=== PATIENT | female | born 1980 | race Caucasian/White ===

== ENCOUNTER 2019-02-16 13:53 | Inpatient (IN) | payer MEDICAID ==
[~2019-02-16] VITALS: Ht 162.6 cm; Wt 57.0 kg
--- NOTE | 2019-02-16 14:27 | NUR ---
Blood drawn and patient to CT.
[2019-02-16 14:40] LABS: BASOPHILS # (AUTO) 0.1 X10'3 (0-0.2); BASOPHILS % (AUTO) 1.4 % (0-1); EOSINOPHILS # (AUTO) 0.3 X10'3 (0-0.9); EOSINOPHILS % (AUTO) 3.9 % (0-6); HEMATOCRIT 32.5 % (35.0-45.0); LYMPHOCYTES # (AUTO) 1.9 X10'3 (1.1-4.8); MEAN CORPUSCULAR HEMOGLOBIN 24.5 PG (27.0-31.0); MEAN CORPUSCULAR HGB CONC 33.8 g/dL (33.0-36.5); MEAN CORPUSCULAR VOLUME 72.3 FL (78-98); MEAN PLATELET VOLUME 8.7 FL (7.4-10.4); MONOCYTES # (AUTO) 0.5 X10'3 (0-0.9); MONOCYTES % (AUTO) 7.6 % (2-12); NEUTROPHILS # (AUTO) 4.2 X10'3 (1.8-7.7); NEUTROPHILS % (AUTO) 60.1 % (42-75); PLATELET COUNT 129 X10'3 (140-440); RED CELL DISTRIBUTION WIDTH 15.3 % (11.5-14.5); WHITE BLOOD COUNT 6.9 X10'3 (4.5-11.0)
[2019-02-16] MEDS ORDERED: aspirin 325mg tablet PO ONE (14:45)
[2019-02-16 14:46] LABS: PARTIAL THROMBOPLASTIN TIME 56 SECONDS (22-32)
[2019-02-16 14:47] LABS: ALANINE AMINOTRANSFERASE 21 U/L (12-78); ALBUMIN 3.6 G/DL (3.4-5.0); ALBUMIN/GLOBULIN RATIO 0.8 (1.1-1.5); ALKALINE PHOSPHATASE 108 IU/L (46-116); ANION GAP 8 (8-16); ASPARTATE AMINO TRANSFERASE 21 U/L (10-37); BILIRUBIN,TOTAL 0.3 MG/DL (0.1-1.0); BLOOD UREA NITROGEN 16 MG/DL (7-18); BUN/CREATININE RATIO 12.6 (6.6-38.0); CHLORIDE 103 MMOL/L (99-107); CREATININE 1.27 MG/DL (0.40-0.90); GLUCOSE 92 MG/DL (70-104); SODIUM 139 MMOL/L (135-145); TOTAL CARBON DIOXIDE 28.3 MMOL/L (24-32); TOTAL PROTEIN 7.9 G/DL (6.4-8.2); eGFR 47 ML/MIN
[2019-02-16 14:51] LABS: TROPONIN I < 0.04 NG/ML (0.0-0.05)
[2019-02-16] MEDS ORDERED: clopidogrel 300mg tablet PO ONE (15:30)
[2019-02-16] MEDS ORDERED: iohexol 350MG/ML 100ml bottle IV ONE (15:32)
[2019-02-16] MEDS ORDERED: ASPI-1264 PO (15:39)
[2019-02-16] MEDS ORDERED: magnesium Cl slow-release 64mg tablet PO PRN (16:40)
[2019-02-16] MEDS ORDERED: magnesium 4gm in 100ml NS 100 ML IV PRN (16:40)
[2019-02-16] MEDS ORDERED: magnesium hydroxide 30ml (MOM) UD suspension PO PRN (16:40)
[2019-02-16] MEDS ORDERED: diphenhydrAMINE 25mg capsule PO PRN (16:40)
[2019-02-16] MEDS ORDERED: metoclopramide 5 mg/ml inj IV PRN (16:40)
[2019-02-16] MEDS ORDERED: magnesium 2GM in 50ml NS 50 ML IV PRN (16:40)
[2019-02-16] MEDS ORDERED: mag hydrox/Alum hydrox/simeth 30ml oral suspension PO PRN (16:40)
[2019-02-16] MEDS ORDERED: acetaminophen 650mg rectal suppository RC PRN (16:40)
[2019-02-16] MEDS ORDERED: acetaminophen 325mg tablet PO PRN ×2 (16:40)
[2019-02-16] MEDS ORDERED: potassium Cl 20 mEq SR tablet PO PRN (16:40)
[2019-02-16] MEDS ORDERED: ondansetron/PF 4mg/2ml inj IV PRN (16:40)
[2019-02-16] MEDS ORDERED: potassium CL 10mEq/100ml bag 100 ML IV PRN ×2 (16:40)
[2019-02-16] MEDS ORDERED: bisacodyl 10mg suppository rectal RC PRN (16:40)
[2019-02-16 17:15] LABS: CHOL/HDL RATIO 2.2 (0.00-4.99); CHOLESTEROL 137 MG/DL (0-200); HDL CHOLESTEROL 62 MG/DL (35-60); LDL CHOLESTEROL 69 MG/DL (50-100); TRIGLYCERIDES 41 MG/DL (20-135)
[2019-02-16] MEDS: atorvastatin 20mg tablet PO SCH (18:01)
[2019-02-16] MEDS: normal saline 1000ml 1,000 ML IV SCH (18:03)
[2019-02-16 18:08] LABS: URINE HCG NEGATIVE (NEG)
[2019-02-16 18:12] LABS: CLARITY,URINE CLEAR (Clear); COLOR,URINE YELLOW (Yellow); GLUCOSE, URINE NEGATIVE (Neg); KETONES,URINE NEGATIVE (Neg); LEUKOCYTE ESTERASE ,URINE NEGATIVE (Neg); NITRITES, URINE NEGATIVE (Neg); OCCULT BLOOD,URINE NEGATIVE (Neg); PROTEIN,URINE NEGATIVE (Neg); UROBILINOGEN,URINE 0.2 E.U/dL (0.2-1.0)
[2019-02-16 18:14] LABS: UA COLLECTION TYPE CLN CATCH MIDSTREAM
[2019-02-16 18:21] LABS: URINE AMPHETAMINE SCREEN POSITIVE (Neg); URINE BARBITUATE SCREEN NEGATIVE (Neg); URINE BENZODIAZEPINES SCREEN NEGATIVE (Neg); URINE CANNABINOID SCREEN NEGATIVE (Neg); URINE COCAINE SCREEN NEGATIVE (Neg); URINE METHADONE SCREEN NEGATIVE (Neg); URINE OPIATE SCREEN NEGATIVE (Neg); URINE PHENCYCLIDINE SCREEN NEGATIVE (Neg)
--- NOTE | 2019-02-16 19:22 | NUR ---
Report rec'd from Pradeep FOSTER rn.
--- NOTE | 2019-02-16 19:34 | NUR ---
pt up to the floor, VSS, ambulatory to the restroom from hallway.
[2019-02-16] MEDS: K and/or MAG REPLACEMENT MC SCH (20:00)
[2019-02-16 20:14] VITALS: BP 171/105
[2019-02-16] MEDS ORDERED: propranolol LA 60 MG cap.SA.24H PO ONE (20:45)
[2019-02-16] MEDS ORDERED: propranolol LA 60 MG cap.SA.24H PO SCH (20:45)
[2019-02-16] MEDS ORDERED: propranolol 10mg tablet PO ONE (21:00)
--- NOTE | 2019-02-16 21:45 | NUR ---
Dr Cerda in to see pt. pt still denies use of amphetamine, (+) toxicology. new order for propranolol 20mg PO bid, and once now. Addendum: 02/17/19 at 0102 by Luz Sapp RN Dr Cerda in to see pt. pt still denies use of amphetamine, (+) toxicology. new order for propranolol 20mg PO bid, and once now. also, decrease NS to 20ml/hr.
[2019-02-16] MEDS: heparin, porcine 5000 units/ml vial SQ SCH (21:52)
[2019-02-16 22:00] VITALS: BP 160/89
[2019-02-17 01:17] VITALS: BP 156/92
[2019-02-17 05:25] LABS: BASOPHILS % (AUTO) 0.8 % (0-1); EOSINOPHILS # (AUTO) 0.3 X10'3 (0-0.9); EOSINOPHILS % (AUTO) 5.2 % (0-6); HEMATOCRIT 28.3 % (35.0-45.0); HEMOGLOBIN 9.5 g/dl (12.0-16.0); LYMPHOCYTES % (AUTO) 35.4 % (21-51); MEAN CORPUSCULAR HGB CONC 33.5 g/dL (33.0-36.5); MEAN CORPUSCULAR VOLUME 74.7 FL (78-98); MEAN PLATELET VOLUME 8.7 FL (7.4-10.4); MONOCYTES # (AUTO) 0.5 X10'3 (0-0.9); MONOCYTES % (AUTO) 8.4 % (2-12); NEUTROPHILS # (AUTO) 2.9 X10'3 (1.8-7.7); NEUTROPHILS % (AUTO) 50.2 % (42-75); PLATELET COUNT 112 X10'3 (140-440); RED BLOOD COUNT 3.78 X10'6 (4.20-5.60); RED CELL DISTRIBUTION WIDTH 15.3 % (11.5-14.5); WHITE BLOOD COUNT 5.7 X10'3 (4.5-11.0)
[2019-02-17 05:41] LABS: ALANINE AMINOTRANSFERASE 18 U/L (12-78); ALBUMIN 3.1 G/DL (3.4-5.0); ALBUMIN/GLOBULIN RATIO 0.9 (1.1-1.5); ALKALINE PHOSPHATASE 91 IU/L (46-116); ANION GAP 5 (8-16); ASPARTATE AMINO TRANSFERASE 19 U/L (10-37); BILIRUBIN,TOTAL 0.3 MG/DL (0.1-1.0); BLOOD UREA NITROGEN 12 MG/DL (7-18); BUN/CREATININE RATIO 10.8 (6.6-38.0); CALCIUM 8.4 MG/DL (8.5-10.1); CHLORIDE 107 MMOL/L (99-107); CHOL/HDL RATIO 2.3 (0.00-4.99); CHOLESTEROL 115 MG/DL (0-200); CREATININE 1.11 MG/DL (0.40-0.90); GLUCOSE 87 MG/DL (70-104); HDL CHOLESTEROL 49 MG/DL (35-60); LDL CHOLESTEROL 57 MG/DL (50-100); MAGNESIUM 1.7 MG/DL (1.5-2.4); POTASSIUM 3.4 MMOL/L (3.5-5.1); SODIUM 139 MMOL/L (135-145); TOTAL CARBON DIOXIDE 26.7 MMOL/L (24-32); TOTAL PROTEIN 6.6 G/DL (6.4-8.2); TRIGLYCERIDES 77 MG/DL (20-135); eGFR 55 ML/MIN
[2019-02-17 06:30] VITALS: BP 149/78
--- NOTE | 2019-02-17 06:41 | NUR ---
Report given to zachery Davis.
--- NOTE | 2019-02-17 06:47 | NUR ---
Patient in room ORTHO 4006. I have received report from BYRON Yang and had the opportunity to ask questions and assume patient care.
[2019-02-17] MEDS: K and/or MAG REPLACEMENT MC SCH ×2 (07:01→19:04)
[2019-02-17] MEDS ORDERED: propranolol LA 60 MG cap.SA.24H PO SCH (08:00)
[2019-02-17] MEDS: propranolol 10mg tablet PO SCH ×2 (09:12→20:16)
[2019-02-17] MEDS: atorvastatin 20mg tablet PO SCH (09:12)
[2019-02-17] MEDS: aspirin 81mg tablet.DR PO SCH (09:13)
[2019-02-17] MEDS: potassium Cl 20 mEq SR tablet PO PRN ×3 (09:13→20:16)
[2019-02-17] MEDS: heparin, porcine 5000 units/ml vial SQ SCH ×2 (09:13→20:16)
[2019-02-17] MEDS ORDERED: LORazepam 2 mg/ml vial IV ONE (10:10)
[2019-02-17 11:00] VITALS: BP 135/82
[2019-02-17 15:00] VITALS: BP 141/82
[2019-02-17 18:00] VITALS: BP 129/89
[2019-02-17] MEDS ORDERED: atorvastatin 20mg tablet PO ONE (19:10)
--- NOTE | 2019-02-17 19:26 | NUR ---
Chelsy from [facility] called to notify staff that they will SET UP ROUTINE TELE-PSYCH APPT IN THE AM BETWEEN 8-, AND WILL CALL 30 MINS PRIOR TO APPT. Addendum: 02/17/19 at 1947 by Luz Sapp RN Chelsy from [facility] called to notify staff that they will SET UP ROUTINE TELE-NEURO APPT IN THE AM BETWEEN 8-, AND WILL CALL 30 MINS PRIOR TO APPT.
[2019-02-17] MEDS: clopidogrel 75mg tablet PO SCH (21:40)
[2019-02-17 22:00] VITALS: BP 139/88
[2019-02-17] MEDS: normal saline 1000ml 1,000 ML IV SCH (22:23)
[2019-02-18 05:57] LABS: BASOPHILS # (AUTO) 0.1 X10'3 (0-0.2); BASOPHILS % (AUTO) 0.9 % (0-1); EOSINOPHILS # (AUTO) 0.3 X10'3 (0-0.9); HEMATOCRIT 29.6 % (35.0-45.0); HEMOGLOBIN 9.9 g/dl (12.0-16.0); LYMPHOCYTES # (AUTO) 1.9 X10'3 (1.1-4.8); LYMPHOCYTES % (AUTO) 29.1 % (21-51); MEAN CORPUSCULAR HEMOGLOBIN 24.3 PG (27.0-31.0); MEAN CORPUSCULAR HGB CONC 33.4 g/dL (33.0-36.5); MEAN CORPUSCULAR VOLUME 72.8 FL (78-98); MEAN PLATELET VOLUME 9.2 FL (7.4-10.4); MONOCYTES # (AUTO) 0.5 X10'3 (0-0.9); NEUTROPHILS # (AUTO) 3.8 X10'3 (1.8-7.7); PLATELET COUNT 120 X10'3 (140-440); RED BLOOD COUNT 4.06 X10'6 (4.20-5.60); RED CELL DISTRIBUTION WIDTH 15.4 % (11.5-14.5); WHITE BLOOD COUNT 6.4 X10'3 (4.5-11.0)
--- NOTE | 2019-02-18 06:22 | NUR ---
REPORT GIVEN TO BYRON STARK.
--- NOTE | 2019-02-18 06:30 | NUR ---
Patient in room ORTHO 4006. I have received report from BYRON Escobar and had the opportunity to ask questions and assume patient care.
[2019-02-18 06:34] LABS: ALANINE AMINOTRANSFERASE 17 U/L (12-78); ALBUMIN/GLOBULIN RATIO 0.8 (1.1-1.5); ALKALINE PHOSPHATASE 86 IU/L (46-116); ANION GAP 8 (8-16); ASPARTATE AMINO TRANSFERASE 15 U/L (10-37); BILIRUBIN,TOTAL 0.3 MG/DL (0.1-1.0); BLOOD UREA NITROGEN 13 MG/DL (7-18); BUN/CREATININE RATIO 11.8 (6.6-38.0); CALCIUM 8.4 MG/DL (8.5-10.1); CHLORIDE 110 MMOL/L (99-107); GLUCOSE 86 MG/DL (70-104); MAGNESIUM 1.6 MG/DL (1.5-2.4); POTASSIUM 4.5 MMOL/L (3.5-5.1); SODIUM 143 MMOL/L (135-145); TOTAL CARBON DIOXIDE 25.5 MMOL/L (24-32); TOTAL PROTEIN 6.8 G/DL (6.4-8.2); eGFR 56 ML/MIN
[2019-02-18 06:41] VITALS: BP 122/67
[2019-02-18] MEDS ORDERED: atorvastatin 20mg tablet PO SCH (08:00)
[2019-02-18] MEDS: K and/or MAG REPLACEMENT MC SCH (08:00)
[2019-02-18] MEDS: propranolol 10mg tablet PO SCH (08:50)
[2019-02-18] MEDS: clopidogrel 75mg tablet PO SCH (08:51)
[2019-02-18] MEDS: aspirin 81mg tablet.DR PO SCH (08:51)
[2019-02-18] MEDS: heparin, porcine 5000 units/ml vial SQ SCH (08:52)
[2019-02-18] MEDS ORDERED: ASPI-1071 PO (17:24)
[2019-02-18] MEDS ORDERED: PROP10TA10 PO (17:24)
[2019-02-18] MEDS ORDERED: CLOP75TA35 PO (17:24)
[2019-02-18] MEDS ORDERED: ATOR20TA66 PO (17:24)
--- NOTE | 2019-02-18 17:44 | NUR ---
Received discharge orders from Dr. Bryan. RX x4 called into [facility] on [facility] per pts request. IV dc'd with cannula intact.No redness/swelling at IV site. Telemetry dc'd. Ambulated to [facility] and discharged in a private vehicle.
== END 2019-02-18 17:30 | disposition home or self-care (01) | DRG 45 ==
LOC: ER 13:53 → ED HOLD 16:39 → ORTHO 4S 19:30
PROVIDERS: ADMIT Family Medicine; ATTEND Hospitalist
DX: I63.9 Cerebral infarction, unspecified (principal); D68.61 Antiphospholipid syndrome; R47.01 Aphasia; D64.9 Anemia, unspecified; E87.6 Hypokalemia; F15.10 Other stimulant abuse, uncomplicated; I10 Essential (primary) hypertension; F17.210 Nicotine dependence, cigarettes, uncomplicated; Z79.02 Long term (current) use of antithrombotics/antiplatelets; Z79.82 Long term (current) use of aspirin; Z80.3 Family history of malignant neoplasm of breast; Z82.49 Family history of ischemic heart disease and other diseases of the circulatory system; Z86.73 Personal history of transient ischemic attack (TIA), and cerebral infarction without residual deficits; Z91.19 Patient's noncompliance with other medical treatment and regimen; Z98.891 History of uterine scar from previous surgery; Z98.51 Tubal ligation status; Z88.0 Allergy status to penicillin; Z88.5 Allergy status to narcotic agent; Z71.6 Tobacco abuse counseling
CPT/HCPCS: 36415; 70450; 70496; 70498; 70544; 70551; 71045; 80053; 80061; 80305; 81003; 81025; 83036; 83735; 84484; 85025; 85610; 85651; 85730; 87081; 92508; 92616; 93005; 93306; 97116; 97161; 97530; 99285; G0378; J1644; J2060; J7030; Q9967

== ENCOUNTER 2024-08-28 23:19 | Emergency (ER) | payer MEDICAID ==
[~2024-08-28] VITALS: Ht 157.5 cm; Wt 54.6 kg
[~2024-08-28 23:19] MED LIST: ASPI-1071 PO; ATOR20TA66 PO; CLOP75TA34 PO; PROP10TA10 PO
[2024-08-28 23:38] VITALS: BP 168/107; PULSE 99; RESP 16; TEMP 98.7; O2SAT 97
[2024-08-29] MEDS ORDERED: IBUP-1984 PO (00:49)
[2024-08-29] MEDS ORDERED: LEVO-65 PO (00:49)
[2024-08-29] MEDS ORDERED: ACET-812 PO (00:49)
--- NOTE | 2024-08-29 00:50 | Physician Documentation ---
History of Present Illness ~ Chief Complaint: Ear Pain Stated Complaint: EAR PAIN Time Seen by MD: 00:29 Primary Medical Doctor: SAMSON RUBIO [facility] Patient presents to the emergency room with right ear pain as well as cough cold congestion symptoms. Cough cold congestion symptoms has been going on for the past 1-2 weeks. No fevers. Ear pain over the last couple of days. She has had nothing for pain Medication Reconciliation Allergies: Coded Allergies: Penicillins (Unverified Allergy, Unknown, 08/28/24) methadone (Unverified Allergy, Unknown, 08/28/24) morphine (Unverified Allergy, Unknown, 08/28/24) Uncoded Allergies: MUSHROOMS (Adverse Reaction, Intermediate, ITCHING, 04/05/16) Scheduled Aspirin (Ecotrin*), 81 MG PO DAILY@0830 Atorvastatin Calcium (Atorvastatin Calcium), 80 MG PO DAILY Clopidogrel Bisulfate (Clopidogrel), 75 MG PO DAILY Propranolol Hcl* (Inderal*), 20 MG PO BID Past Medical History Past Medical History: MRSA Abscess Past Surgical History: , tubal ligation Alcohol Use: Occasionally Drug Use: none Lives with: Family Occupation: unemployed Review of Systems ROS All review of systems negative except as per HPI Physical Exam Vital Signs: Temperature: 98.7, Source: Oral, Heart Rate: 99, Respiratory Rate: 16, BP: 168/107, Pulse Oximetry: 97, Weight: 54.600 Oxygen Flow Rate: 0 Physical Exam General: Patient is awake, alert, oriented x4 in no acute distress Head: Normocephalic and atraumatic. Eyes: Conjunctival normal. EOMI. PERRL. ENT: Mucous membranes moist. Right tympanic membrane bulging and erythremic lymph node noted just anterior to right ear. No tenderness over mastoid process Neck: Supple, trachea is midline. Chest: Clear to auscultation bilaterally without rales, rhonchi, or wheezes. There is no accessory muscle use or retractions. Cardiac: RRR without murmurs, gallops, or rubs. Progress Results/Orders Results/Orders Completed Orders - ELLIOTT CARRILLO MD Ondansetron Disint. Tablet (Zofran Odt T (08/29/24 00:35) Levofloxacin 750mg Tablet (Levaquin 750m (08/29/24 00:35) Ibuprofen Tablet (Motrin Tablet) (08/29/24 00:35) Acetaminophen 325mg Tablet (Tylenol Tabl (08/29/24 00:35) Vital Signs 08/28/24 23:38 Temp 98.7 Pulse 99 Resp 16 B/P (MAP) 168/107 Pulse Ox 97 O2 Flow Rate 0 Medical Decision Making Findings Patient presented to the emergency room for evaluation of ear pain and cough as per HPI. Differentials include but are not limited to otitis media, otitis externa, viral syndrome, pneumonia. We will empirically treat with Levaquin as it will treat both ear infections and pneumonia. He had not feel x-ray is necessary as we will empirically to be treating for pneumonia. Departure Disposition: HOME / SELF CARE / HOMELESS Impression: Primary Impression: Otitis media Additional Impression: Cough Condition: Stable Discharge Instructions: Cough, Adult, [id number], Earache, Adult Referrals: NO PRIMARY CARE PROVIDER (PCP) Prescriptions Acetaminophen (Tylenol Extra Strength) 500 Mg Tablet 2 TABLET PO Q6H, #30 TABLET 1 Refill Prov: ELLIOTT CARRILLO MD 08/29/24 Ibuprofen* (Motrin*) 400 Mg Tablet 1 TAB PO Q6H PRN PRN for pain or fever for 5 Days, #20 TAB Prov: ELLIOTT CARRILLO MD 08/29/24 Levofloxacin (Levofloxacin) 500 Mg Tablet 1 TAB PO DAILY for 10 Days, #10 TAB Prov: ELLIOTT CARRILLO MD 08/29/24 Education Educated: Patient Educated regarding: diagnosis, treatment, need for follow up Signature Scribe Signature: No scribe Attestation: The note accurately reflects work and decisions made by me.Elliott Carrillo MD 08/29/24 00:50 ELLIOTT CARRILLO MD Aug 29, 2024 00:50
[2024-08-29] MEDS: ondansetron 4mg rapidly disintigrating tab PO ONE (00:54)
[2024-08-29] MEDS: ibuprofen tablet 400 MG TABLET PO ONE (00:54)
[2024-08-29] MEDS: levoFLOXACIN 750MG TABLET PO ONE (00:55)
== END 2024-08-29 01:00 | disposition home or self-care (01) ==
LOC: ER 23:19
DX: H66.91 Otitis media, unspecified, right ear (principal); R05.9 Cough, unspecified; Z88.0 Allergy status to penicillin; Z88.5 Allergy status to narcotic agent; Z98.51 Tubal ligation status; Z79.82 Long term (current) use of aspirin; Z79.899 Other long term (current) drug therapy; Z56.0 Unemployment, unspecified; Z72.89 Other problems related to lifestyle
CPT/HCPCS: 99284

== ENCOUNTER 2024-08-31 17:11 | Emergency (ER) | payer MEDICAID ==
[~2024-08-31] VITALS: Ht 162.6 cm; Wt 63.6 kg
[~2024-08-31 17:11] MED LIST changes: +ACET-812 PO; +IBUP-1984 PO; +LEVO-65 PO
[2024-08-31 17:12] VITALS: BP 141/79; PULSE 103; RESP 16; TEMP 97.4; O2SAT 99
[2024-08-31] MEDS ORDERED: AZIT250T89 PO (17:31)
--- NOTE | 2024-08-31 17:32 | Physician Documentation ---
HPI ~ General Chief Complaint: Medication Request Stated Complaint: MED REQUEST Time Seen by MD: 17:25 Primary Medical Doctor: SAMSON RUBIO Source: patient Mode of Arrival: POV Exam Limitations: no limitations History of Present Illness HPI Comments 43-year-old female was seen in the emergency department August 29, 2024 with cold cough congestion and ear infection was prescribed Levaquin once daily for 10 days and states that it is really upsetting her stomach and she would like to have an antibiotic that is different. Patient is allergic to penicillin. No other acute medical concerns. Medication Reconciliation Allergies: Coded Allergies: Penicillins (Unverified Allergy, Unknown, 08/31/24) methadone (Unverified Allergy, Unknown, 08/31/24) morphine (Unverified Allergy, Unknown, 08/31/24) Uncoded Allergies: MUSHROOMS (Adverse Reaction, Intermediate, ITCHING, 04/05/16) Scheduled Acetaminophen (Tylenol Extra Strength), 2 TABLET PO Q6H Aspirin (Ecotrin*), 81 MG PO DAILY@0830 Atorvastatin Calcium (Atorvastatin Calcium), 80 MG PO DAILY Clopidogrel Bisulfate (Clopidogrel), 75 MG PO DAILY Levofloxacin (Levofloxacin), 1 TAB PO DAILY Propranolol Hcl* (Inderal*), 20 MG PO BID Scheduled PRN Ibuprofen* (Motrin*), 1 TAB PO Q6H PRN PRN for pain or fever Past Medical History Past Medical History: MRSA Abscess Past Surgical History: , tubal ligation Alcohol Use: Occasionally Drug Use: none Lives with: Family Occupation: unemployed Review of Systems All Other Systems at this time: Reviewed and Negative Physical Exam Physical Exam Vital Signs: RN Vital Signs have been reviewed: Yes, Temperature: 97.4, Source: Temporal, Heart Rate: 103, Respiratory Rate: 16, BP: 141/79, Pulse Oximetry: 99, Weight: 63.640 Oxygen Flow Rate: 0 General Appearance: alert, WD/WN, no apparent distress Neck: supple Respiratory: no respiratory distress Chest: no accessory muscle use Cardiovascular: regular rate, rhythm Progress Results/Orders Results/Orders Vital Signs 08/31/24 17:12 Temp 97.4 Pulse 103 Resp 16 B/P (MAP) 141/79 Pulse Ox 99 O2 Flow Rate 0 Medical Decision Making Findings Reviewed records discussed discontinuing Levaquin start on Zithromax. Patient to follow up with primary care urgent care as needed Departure Time of Disposition: 17:30 Disposition: 01 HOME / SELF CARE / HOMELESS Impression: Primary Impression: Otitis media Condition: Stable Discharge Instructions: Medicine Refill at the Emergency Department Additional Instructions: Stopped taking Levaquin start taking Zithromax Referrals: NO PRIMARY CARE PROVIDER (PCP) Prescriptions Azithromycin (Zithromax) 250 Mg Tablet 1 TAB PO UD for 5 Days, #6 TAB 2 the first day followed by 1 for days 2-5 Prov: VERONICA ESTRADA NP 08/31/24 Education Educated: Patient Educated regarding: diagnosis, treatment, need for follow up Signature Scribe Signature: No scribe Attestation: The note accurately reflects work and decisions made by me.Veronica TANG 08/31/24 17:31 VERONICA ESTRADA NP Aug 31, 2024 17:32
== END 2024-08-31 17:35 | disposition home or self-care (01) ==
LOC: ER 17:11
DX: H66.93 Otitis media, unspecified, bilateral (principal); Z88.0 Allergy status to penicillin; Z88.5 Allergy status to narcotic agent; Z98.51 Tubal ligation status; Z79.899 Other long term (current) drug therapy; Z72.89 Other problems related to lifestyle; Z56.0 Unemployment, unspecified
CPT/HCPCS: 99283